=== PATIENT | female | born 2000 | race Hispanic/Latino ===

== ENCOUNTER 2020-12-15 12:47 | Emergency (ER) | payer OTHER, SELFPAY ==
--- NOTE | ~2020-12-15 | XR_ITS ---
EXAMINATION: XR foot LT min 3V DATE: 12/15/2020 13:08 INDICATION: Left foot injury and pain. TECHNIQUE: 4 views of left foot were obtained. COMPARISON: None. FINDINGS: Bone alignment is normal. There is a nondisplaced stellate fracture of cuboid. Joint spaces are normal. IMPRESSION: 1. Nondisplaced stellate fracture of cuboid. Reviewed, dictated and finalized at location B.
[2020-12-15 13:00] VITALS: BP 131/76; PULSE 82; RESP 16; TEMP 36.6; O2SAT 99
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
--- NOTE | 2020-12-15 13:23 | ED.LOWEXIN ---
HPI - Extremity Injury (Lower) General Chief Complaint: Extremity Injury, Lower Stated Complaint: fall, left foot Time Seen by Provider: 12/15/20 13:16 Source: RN notes reviewed History of Present Illness HPI Narrative: Patient presents to emergency room from home from left foot pain. Patient states that this morning she was taking out the dog when her foot slipped and rolled she states since that time she is had pain swelling and bruising over the left dorsal foot pain is worse with stepping on the foot she is taking nothing for the pain she denies any other trauma or injury. Denies any ankle or knee pain Related Data Allergies Allergy/AdvReac Type Severity Reaction Status Date / Time No Known Allergies Allergy Mild Verified 05/22/10 09:19 Review of Systems Review of Systems: Narrative: Gen.: Denies fevers or chills Musculoskeletal: See HPI Neuro: Denies numbness, tingling, weakness Skin: Denies rash Endo: Denies DM PMFSH Past Medical History Medical History (Updated 12/15/20 @ 14:10 by Neto Sykes DO) Patient denies significant medical history Social History Social History (Updated 12/15/20 @ 13:24 by Neto Sykes DO) Smoking status: Never smoker Exam Narrative: Exam Narrative: APPEARANCE: No acute distress, nontoxic, resting in bed Eyes: EOMI HEENT: Normocephalic, atraumatic, RESPIRATORY: No respiratory distress MUSCULOSKELETAl: Tender to palpation of the left dorsal lateral foot with swelling and ecchymosis present no tenderness over the medial or lateral malleolus no tenderness of the proximal fibula dorsalis pedis pulse 2+ neurovascular intact NEURO: Awake and alert. Following commands, speech normal, no focal deficits SKIN:: Warm, dry. Normal Color no rash or lesions Course Course Emergency Course: Discussed with patient results of workup and diagnosis. Discussed need for follow-up with primary care, proper use of medication, and reasons to return to the emergency department. Patient understands and agrees to current treatment plan Vital Signs Vital signs: Vital Signs Temperature 98 F 12/15/20 13:00 Pulse Rate 82 12/15/20 13:00 Respiratory Rate 16 12/15/20 13:00 Blood Pressure 131/76 12/15/20 13:00 Pulse Oximetry 99 12/15/20 13:00 Temperature 98 F 12/15/20 13:00 Pulse Rate 82 12/15/20 13:00 Respiratory Rate 16 12/15/20 13:00 Blood Pressure 131/76 12/15/20 13:00 Pulse Oximetry 99 12/15/20 13:00 Procedures Orthopedic Splinting/Casting Injury #1: Side: left Lower Extremity Immobilizer: posterior splint (Posterior short leg) Splint: customized in ED OCL: short leg Pre-Procedure Neuro Vascular Exam: normal Post-Procedure Neuro Vascular Exam: normal Other Orthopedic Equipment: crutches MDM - Extremity Injury (Lower) Imaging Data Radiologist's impression: ITS Impressions Foot X-Ray 12/15/20 13:17 IMPRESSION: 1. Nondisplaced stellate fracture of cuboid. Discharge Plan Discharge Clinical Impression: Closed fracture of cuboid of left foot Patient Disposition: Home, Self-Care Condition: Stable Instructions: Antibiotic Form, Foot Fracture in Adults (ED) Additional Instructions: Return for increasing pain numbness or tingling in the extremity or any other symptoms of concern Prescriptions: New ibuprofen [IBU] 600 mg tablet 600 mg PO Q6H PRN (Reason: pain) Qty: 20 RF: 0 Follow-up/Referrals: Stevan Schultz MD [Physician] - (Follow-up in 1 to 2 days for further orthopedic treatment and evaluation) PHYSICIAN NOT ON STAFF,NONSTAFF [Primary Care Provider] - Time of Disposition: 14:11
[2020-12-15] MEDS: IBUPROFEN 600 MG TABLET PO (13:33)
--- NOTE | 2020-12-15 14:06 | PC.NURSE ---
Pt provided crutches, education and return demo performed. Short leg postmold placed by ED techs. Pt verbalizes understanding to f/u with ortho, take otc pain meds prn
== END 2020-12-15 14:35 | disposition home or self-care (01) ==
LOC: ANHED 14:34
PROVIDERS: Emergency Provider Emergency Medicine
DX: S92.215A Nondisplaced fracture of cuboid bone of left foot, initial encounter for closed fracture (principal); X50.9XXA Other and unspecified overexertion or strenuous movements or postures, initial encounter
CPT/HCPCS: 29515; 73630; 99284; A9270

== ENCOUNTER 2021-03-19 13:39 | Emergency (ER) | payer OTHER, SELFPAY ==
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
[2021-03-19 13:40] VITALS: BP 133/108; PULSE 86; RESP 18; TEMP 36.9; O2SAT 100
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
[2021-03-19 14:29] LABS: Basophils Absolute Auto 0.1 K/mm3 (0.0-0.1); Basophils Percent Auto 0.6 % (0.2-1.2); Eosinophils Absolute Auto 0.1 K/mm3 (0-0.3); Eosinophils Percent Auto 0.6 % (0-4.4); Hematocrit 41.2 % (37.0-47.0); Hemoglobin 13.4 g/dL (12.0-15.0); Immature Granulocyte Absolute 0.01 K/mm3 (0.00-0.031); Immature Granulocyte Percent A 0.1 % (0-0.5); Lymphocytes Absolute Auto 2.64 K/mm3 (0.9-3.2); Lymphocytes Percent Auto 29.5 % (18.3-44.2); Mean Corpuscular HGB Conc 32.5 g/dl (32-36); Mean Corpuscular Hemoglobin 30.9 pg (26-34); Mean Corpuscular Volume 95.2 fl (80-100); Mean Platelet Volume 9.8 fl (7.4-10.4); Monocytes Absolute Auto 0.7 K/mm3 (0.1-0.6); Monocytes Percent Auto 8.2 % (2.6-8.5); Neutrophils Absolute Auto 5.5 K/mm3 (1.3-6.7); Platelet Count Result 324 k/mm3 (150-375); Red Blood Count 4.33 M/mm3 (4.2-5.4); Red Cell Distribution Width 13.5 % (11.5-14.5)
[2021-03-19 14:37] LABS: Add Urine Microscopic? YES; Appearance Urine Cloudy (Clear); Bacteria Urine 1+ /hpf; Bilirubin Urine Negative (Negative); Blood Urine 1+ (Negative); Color Urine Yellow (Yellow); Glucose Urine UA Negative (Negative); Ketones Urine 1+ mg/dL (Negative); Leukocyte Esterase Ur Negative LEU/UL (Negative); Mucus Urine Few /lpf; Nitrate Urine Positive (Negative); Protein Urine Negative (Negative); Specific Grav Ur 1.025 (1.001-1.035); Squamous Epithelial Cell Urine Many /hpf (Few); WBC Urine 0-3 /hpf
[2021-03-19 14:42] LABS: Estimated CRCL calculation 112 ml/min; Estimated Glomerular Filt Rate > 60
[2021-03-19 14:44] LABS: Alanine Aminotransferase 22 U/L (4-35); Albumin Level 4.2 g/dL (3.5-5.1); Alkaline Phosphatase 72 U/L (38-126); Anion Gap 9 mmol/L (8-16); Aspartate Amino Transferase 31 U/L (14-36); Bilirubin,Total 0.7 mg/dL (0.2-1.3); Blood Urea Nitrogen 7 mg/dL (7-17); Calcium 9.1 mg/dL (8.4-10.2); Carbon Dioxide 25 mmol/L (22-30); Chloride 104 mmol/L (98-107); Estimated CRCL calculation 112 ml/min; Estimated Glomerular Filt Rate > 60; Glucose 103 mg/dL (65-110); Potassium 3.7 mmol/L (3.4-5.0); Sodium 138 mmol/L (137-145)
[2021-03-19 17:21] VITALS: BP 126/82; PULSE 82; RESP 16; O2SAT 100
== END 2021-03-19 16:35 | disposition home or self-care (01) ==
PROVIDERS: Emergency Provider Nurse Practitioner
DX: S10.93XA Contusion of unspecified part of neck, initial encounter (principal); S20.212A Contusion of left front wall of thorax, initial encounter; S40.012A Contusion of left shoulder, initial encounter; S70.02XA Contusion of left hip, initial encounter; S30.0XXA Contusion of lower back and pelvis, initial encounter; N39.0 Urinary tract infection, site not specified; V48.5XXA Car driver injured in noncollision transport accident in traffic accident, initial encounter
CPT/HCPCS: 36415; 70450; 70498; 71260; 74177; 80053; 81001; 81025; 85025; 96365; 99284; J0131; Q9967

== ENCOUNTER 2022-01-27 18:07 | Emergency (ER) | payer OTHER, SELFPAY ==
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
[2022-01-27 18:17] VITALS: BP 135/89; PULSE 70; RESP 16; TEMP 36.2; O2SAT 100
[2022-01-27 18:39] LABS: Basophils Absolute Auto 0.1 K/mm3 (0.0-0.1); Basophils Percent Auto 0.5 % (0.2-1.2); Eosinophils Absolute Auto 0.6 K/mm3 (0-0.3); Eosinophils Percent Auto 5.6 % (0-4.4); Hematocrit 40.7 % (37.0-47.0); Hemoglobin 13.6 g/dL (12.0-15.0); Immature Granulocyte Absolute 0.02 K/mm3 (0.00-0.031); Immature Granulocyte Percent A 0.2 % (0-0.5); Lymphocytes Absolute Auto 2.73 K/mm3 (0.9-3.2); Lymphocytes Percent Auto 25.3 % (18.3-44.2); Mean Corpuscular HGB Conc 33.4 g/dl (32-36); Mean Corpuscular Hemoglobin 32.4 pg (26-34); Mean Corpuscular Volume 96.9 fl (80-100); Mean Platelet Volume 10.8 fl (7.4-10.4); Monocytes Absolute Auto 0.7 K/mm3 (0.1-0.6); Monocytes Percent Auto 6.5 % (2.6-8.5); Neutrophils Absolute Auto 6.7 K/mm3 (1.3-6.7); Neutrophils Percent Auto 61.9 % (45.5-73.1); Platelet Count Result 275 k/mm3 (150-375); Red Cell Distribution Width 12.4 % (11.5-14.5); White Blood Count 10.8 K/mm3 (4.5-10.0)
[2022-01-27 21:46] VITALS: BP 131/78; PULSE 91; RESP 18; O2SAT 100
--- NOTE | 2022-01-27 21:49 | ED.PREGNANCY ---
HPI - General Chief complaint: Vaginal Bleeding Stated complaint: VB [id number] PREG Time Seen by Provider: 01/27/22 21:31 Source: patient Mode of arrival: ambulatory Limitations: no limitations History of Present Illness HPI Narrative: This is a 21-year-old , about 10 weeks and 6 days, that presents to the emergency department for vaginal bleeding. Reports she has had ongoing cramping and bleeding since yesterday. She has not seen an OB yet this . Her first appointment is scheduled for next week with Dr. Cooper Sahu. Denies fever. Related Data Home Medications Medication Instructions Recorded Confirmed lamotrigine 25 mg tablet 75 mg PO DAILY 12/17/20 01/12/21 Allergies Allergy/AdvReac Type Severity Reaction Status Date / Time No Known Allergies Allergy Mild Verified 03/19/21 13:44 Review of Systems Review of Systems: CONSTITUTIONAL: Denies fever GASTROINTESTINAL: Reports pelvic cramping. Denies nausea, vomiting GENITOURINARY: Denies dysuria All systems reviewed & are unremarkable except as noted in HPI and below PMFSH Past Medical History Medical History Anxiety Bipolar disorder Chest tightness Congestion of nasal sinus Constipation Coughing Depression Hair loss Memory loss Patient denies significant medical history Wears glasses Weight gain Wheezing Family History Family History Other Depression Diabetes mellitus Hypertension Social History Social History (Updated 01/27/22 @ 21:[address] PA-C) Smoking status: Never smoker Substance use: never Substance use type: does not use Gender identity (if verbalized by the patient): Female Exam Narrative: GENERAL: Well-appearing, well-nourished, and in no acute distress. HEAD: Normocephalic, atraumatic. EYES: EOMI. CHEST: No respiratory distress. HEART: Regular rate EXTREMITIES: Normal range of motion. No edema. SKIN: Warm, dry, no rash. NEURO: No focal deficits. Alert and oriented x3. PSYCH: Normal mood and affect PELVIC: Normal external genitalia. Small amount of dark red blood in the vaginal vault. Cervix is open Course Vital Signs Vital signs: Vital Signs Temperature 97.2 F L 01/27/22 18:17 Pulse Rate 70 01/27/22 18:17 Respiratory Rate 16 01/27/22 18:17 Blood Pressure 135/89 01/27/22 18:17 Pulse Oximetry 100 01/27/22 18:17 Oxygen Delivery Room Air 01/27/22 18:17 Temperature 97.2 F L 01/27/22 18:17 Pulse Rate 61 01/27/22 23:08 Respiratory Rate 18 01/27/22 23:08 Blood Pressure 110/54 L 01/27/22 23:08 Pulse Oximetry 100 01/27/22 23:08 Oxygen Delivery Room Air 01/27/22 21:46 MDM - OB/Uterine Contractions MDM Narrative Medical decision making narrative: Patient presents to the emergency department for pelvic cramping and vaginal bleeding, about 10 weeks and 6 days by LMP. She is afebrile and nontoxic-appearing. Her vitals are stable. Hemoglobin is 13.6. Quantitative beta-hCG is 4893. Patient is B+. No concerning amount of bleeding on exam. Obstetric ultrasound shows findings suspicious for failure. Recommend follow-up with serial beta hCG and ultrasound. Spoke with Dr. Ortega production operations manager for patient's OB who agrees with follow up at her scheduled appointment next week. Patient is stable and felt appropriate for further outpatient evaluation. She was given warnings to return to the ER Lab Data Attestation: I reviewed the patient's lab results. Result diagrams: 01/27/22 18:31 Labs: Lab Results 01/27/22 01/27/22 01/27/22 Range/Units 18:31 18:31 18:31 WBC 10.8 H (4.5-10.0) K/mm3 RBC 4.20 (4.2-5.4) M/mm3 Hgb 13.6 (12.0-15.0) g/dL Hct 40.7 (37.0-47.0) % MCV 96.9 (80-100) fl MCH 32.4 (26-34) pg MCHC 33.4 (32-36) g/dl RDW 12.4 (11.5-14.5) % Plt Count 275 (1
[2022-01-27 22:03] VITALS: BP 132/89; PULSE 75; RESP 18; O2SAT 100
[2022-01-27 23:08] VITALS: BP 110/54; PULSE 61; RESP 18; O2SAT 100
== END 2022-01-27 23:09 | disposition home or self-care (01) ==
PROVIDERS: Emergency Medicine; Emergency Provider General Practice
DX: O20.0 Threatened abortion (principal); Z3A.10 10 weeks gestation of pregnancy
CPT/HCPCS: 36415; 76801; 76817; 84702; 85025; 85461; 99284